=== PATIENT | female | born 1985 | race Caucasian/White ===

== ENCOUNTER → 2023-03-08 | Day surgery (SDC) | payer MEDICAID, OTHER ==
[~2023-03-08] VITALS: Ht 166.4 cm; Wt 108.4 kg
[~2023-03-08] MED LIST: B50 PO; BUPIVACAINE HCL/PF 0.5% (5MG/ML) 10ML ONE; CEFAZOLIN SODIUM 1000MG/VIAL ONE; CLINDAMYCIN 600MG PREMIX 50 ML IV ONE; CLINDAMYCIN 600MG PREMIX 50 ML IV SCH; DEXAMETHASONE 4MG/ML 1ML VIAL ONE; FENTANYL CITRATE/PF 50MCG/ML 2ML VIAL ONE; GLYCOPYRROLATE 0.2 MG/ML 2ML VIAL ONE; HYDROCODONE/ACETAMINOPHEN 5/325MG TABLET PO NR; KETOROLAC 30MG/ML VIAL IV SCH; LABETALOL 5MG/ML SYR 20 MG/4 ML SYRINGE IV PRN; LACTATED RINGERS 1,000 ML IV SCH; LORAZEPAM 2MG/ML INJ IV PRN; MEPERIDINE HCL/PF 25MG/ML CPJ IM SCH; MEPERIDINE HCL/PF 25MG/ML CPJ IV PRN; MEPERIDINE HCL/PF 50MG/ML CPJ IM SCH; METR-167 PO; MIDAZOLAM HCL 2 MG/2 ML VIAL ONE; NEOSTIGMINE METHYLSULFATE 1MG/ML 10 ML VIAL ONE; ONDANSETRON HCL 4MG/2ML INJ IV PRN; ONDANSETRON HCL 4MG/2ML INJ ONE; PROPOFOL 200MG/20ML VIAL IV ONE; ROCURONIUM BROMIDE 10MG/ML VIAL 5ML IV ONE; SKIN ADHESIVE 0.7 GM EA TOP ONE; SUCCINYLCHOLINE CHLORIDE 200MG/10ML IV ONE
[2023-03-08] MEDS: HYDROMORPHONE HCL/PF 2MG/ML CPJ IV PRN ×4 (10:52→12:06)
[2023-03-08 14:00] VITALS: BP 136/84; PULSE 77; RESP 13
== END | disposition home or self-care (01) ==
LOC: OR 06:40
PROVIDERS: ATTEND Surgery
DX: K80.10 Calculus of gallbladder with chronic cholecystitis without obstruction (principal); F41.9 Anxiety disorder, unspecified; F32.9 Major depressive disorder, single episode, unspecified; Z79.899 Other long term (current) drug therapy; Z90.710 Acquired absence of both cervix and uterus; Z98.890 Other specified postprocedural states; Z88.0 Allergy status to penicillin
CPT/HCPCS: 47562; 88304; J3010; J0690; J1100; J3490 ×3; J1885; J2250; J2405; J2704; J0330; J1170; J2175; J2710